=== PATIENT | female | born 2000 | race Caucasian/White ===

== ENCOUNTER 2024-07-25 10:15 | Outpatient (CLI) | payer OTHER, SELFPAY | END 2024-07-25 10:16 | disposition home or self-care (01) | LOC: NFLDREF 07-28 09:59 | PROVIDERS: Visit Provider Advanced Practice Midwife | DX: O20.9 Hemorrhage in early pregnancy, unspecified (principal) | CPT/HCPCS: 84702; 86850; 86900; 86901 ==

== ENCOUNTER 2024-07-27 14:04 | Outpatient (CLI) | payer OTHER, SELFPAY | END 2024-07-27 14:05 | disposition home or self-care (01) | LOC: NFLDREF 08-01 23:27 | PROVIDERS: Visit Provider Midwife | DX: O20.9 Hemorrhage in early pregnancy, unspecified (principal) | CPT/HCPCS: 84702 ==

== ENCOUNTER 2024-08-03 13:03 | Outpatient (CLI) | payer OTHER, SELFPAY | END 2024-08-03 13:04 | disposition home or self-care (01) | LOC: NFLDREF 08-07 15:21 | PROVIDERS: Visit Provider Advanced Practice Midwife | DX: O03.9 Complete or unspecified spontaneous abortion without complication (principal) | CPT/HCPCS: 84702 ==

== ENCOUNTER 2024-08-31 09:56 | Outpatient (CLI) | payer OTHER, SELFPAY | END 2024-08-31 09:57 | disposition home or self-care (01) | LOC: NFLDREF 09-01 08:51 | PROVIDERS: Visit Provider Advanced Practice Midwife | DX: Z87.59 Personal history of other complications of pregnancy, childbirth and the puerperium (principal) | CPT/HCPCS: 84702 ==

== ENCOUNTER 2024-09-04 10:00 | Outpatient (CLI) | payer OTHER, SELFPAY | END 2024-09-04 10:01 | disposition home or self-care (01) | LOC: NFLDREF 09-05 15:47 | PROVIDERS: Visit Provider Midwife, Lay | DX: Z87.59 Personal history of other complications of pregnancy, childbirth and the puerperium (principal) | CPT/HCPCS: 84702 ==

== ENCOUNTER 2024-09-06 09:55 | Outpatient (CLI) | payer OTHER, SELFPAY ==
--- NOTE | 2024-09-06 10:15 | CRLHL7_ITS ---
For Patients: As a result of the Century Cures Act, medical imaging exams and procedure reports are released immediately into your electronic medical record. You may view this report before your referring provider. If you have questions, please contact your health care provider. INDICATION: First trimester dating and viability. TECHNIQUE: Ultrasound OB pelvis transvaginal. Real-time tomas-scale imaging of the pelvis was performed. COMPARISON: None. FINDINGS: Intrauterine gestation: Single. heart activity (bpm): 118. Olinda-rump length: 0.5 cm. Estimated ultrasound age: 6 weeks 2 days. CARL by ultrasound: 04/30/2025. Yolk sac: Normal. Perigestational hemorrhage: None. Ovaries and adnexa: Unremarkable measuring up to 4.1 cm on the right and 4.4 cm on the left. Right corpus luteal cyst. Suspicious pelvic fluid collections: None. Small amount of free fluid in the posterior cul-de-sac IMPRESSION: Single viable intrauterine measuring 6 weeks 2 days with CARL by ultrasound of 04/30/2025. No abnormalities seen. Dictated by Laurel Avendano MD @ 09/11/2024 9:00:02 AM (Electronically Signed)
== END 2024-09-06 09:56 | disposition home or self-care (01) ==
LOC: US 09:56
PROVIDERS: Visit Provider Advanced Practice Midwife
DX: Z34.91 Encounter for supervision of normal pregnancy, unspecified, first trimester (principal); Z3A.01 Less than 8 weeks gestation of pregnancy
CPT/HCPCS: 76817; 83021; 86703; 86706; 86803; 86850; 86900; 86901; 87086; 87340; 87491; 87591

== ENCOUNTER 2024-09-06 11:08 | Outpatient (CLI) | payer OTHER, SELFPAY ==
[2024-09-06 15:42] LABS: Chlamydia DNA Amplified* NOT DETECTED (No Detected); GC DNA Amplified* NOT DETECTED (No Detected)
== END 2024-09-06 11:09 | disposition home or self-care (01) ==
PROVIDERS: Visit Provider Advanced Practice Midwife
DX: Z34.81 Encounter for supervision of other normal pregnancy, first trimester (principal)
CPT/HCPCS: 83020; 83021; 85660; 86592; 86703; 86704; 86706; 86762; 86787; 86803; 86850; 86900; 86901; 87086; 87340; 87491; 87591

== ENCOUNTER 2024-12-11 12:51 | Outpatient (CLI) | payer OTHER, SELFPAY ==
--- NOTE | 2024-12-11 13:00 | CRLHL7_ITS ---
For Patients: As a result of the Century Cures Act, medical imaging exams and procedure reports are released immediately into your electronic medical record. You may view this report before your referring provider. If you have questions, please contact your health care provider. OBSTETRICAL ULTRASOUND ??? ANATOMY SURVEY INDICATION: anatomy survey. CLINICAL HISTORY: CARL by ultrasound: 04/30/2025 Gestational age: 20 weeks 0 days TECHNIQUE: Real-time tomas-scale transabdominal imaging of the fetus was performed. PREVIOUS ULTRASOUND: 09/06/2024 FINDINGS: position: Vertex Cervix: Visualized Technique: Transabdominal Length of closed cervix: 3.9 cm Placenta position: Anterior Technique: Transabdominal Placenta tip to internal os: 6.0 cm Umbilical cord: 3-vessel cord Placental insertion: Eccentric Amniotic fluid: 5.1 cm SDP (greater than/equal to 2 to less than 8 cm) ANATOMY SURVEY: Observed Structures Cerebellum: Yes; 2.1 cm, 21 weeks 1 day Cisterna magna: Yes; 3.6 mm Nuchal fold: Yes; 5.4 mm Lateral ventricle: Yes; 7.5 mm CSP: Yes Midline falx: Yes Choroid plexus: Yes, incomplete visualization Spine: Yes Stomach: Yes Abdominal cord insert: Yes Urinary bladder: Yes Kidneys: Yes Diaphragm: Yes Nose/lips: Yes Orbital view: Yes Profile: Yes, incomplete visualization Upper extremities: Yes Lower extremities: Yes Hands: Yes Feet: Yes 4-chamber heart: Yes, incomplete visualization LVOT: Yes, incomplete visualization RVOT: Yes, incomplete visualization 3VV: Yes, incomplete visualization 3VTV: Yes, incomplete visualization Comment: Suboptimal visualization of profile, heart and choroid plexus due to position. BIOMETRY BPD: 4.7 cm, 20 weeks 2 days, 64% HC: 18.0 cm, 20 weeks 3 days, 61% AC: 15.2 cm, 20 weeks 3 days, 59% FL: 3.1 cm, 19 weeks 3 days, 24% FL/AC: 20.11% HC/AC ratio: 1.18 heart rate: 154 bpm age by this ultrasound: 20 weeks 2 days CARL by this ultrasound: 04/28/2025 Estimated weight: 328.56 grams (0 pounds 12 ounces) Percentile by CARL: 48% IMPRESSION: 1) Bilateral choroid plexus cysts appear to be present, particularly on the left which measures 16 x 5 x 12 mm. A level 2 ultrasound is recommended. 2) Incomplete visualization of the profile and heart. 3) Concordance of clinical and sonographic dating. LEFTY RALPH M.D. Diagnostic Radiologist [email or web address] Transcribed: 3:[address]/Dictated by: Lefty Ralph MD @ 12/11/2024 2:45:00 PM (Electronically Signed)
== END 2024-12-11 12:52 | disposition home or self-care (01) ==
LOC: US 12:52
PROVIDERS: Visit Provider Advanced Practice Midwife
DX: O35.03X0 Maternal care for (suspected) central nervous system malformation or damage in fetus, choroid plexus cysts, not applicable or unspecified (principal); O35.BXX0 Maternal care for other (suspected) fetal abnormality and damage, fetal cardiac anomalies, not applicable or unspecified; Z3A.20 20 weeks gestation of pregnancy
CPT/HCPCS: 76805

== ENCOUNTER 2024-12-27 14:01 | Outpatient (CLI) | payer OTHER, SELFPAY | END 2024-12-27 14:02 | disposition home or self-care (01) | LOC: US 14:02 | PROVIDERS: Visit Provider Advanced Practice Midwife | DX: O35.03X0 Maternal care for (suspected) central nervous system malformation or damage in fetus, choroid plexus cysts, not applicable or unspecified (principal); Z3A.22 22 weeks gestation of pregnancy | CPT/HCPCS: 76811 ==